=== PATIENT | male | born 1990 | race Caucasian/White ===

== ENCOUNTER 2017-02-02 09:35 | Inpatient (IN) | payer OTHER ==
[~2017-02-02] VITALS: Ht 165.1 cm; Wt 62.5 kg
--- NOTE | ~2017-02-02 | CLPRLASSUM ---
PATIENT: ANAHY PEÑA | | [facility] UNIT #: [id number] | [address] AGE/SEX: 27 M : [birth year] | [address] | [place] [address] ADMIT/REG DATE: 02/02/17 | ROOM: [facility] LOC: ADTC | ADTC | Client Problem List/Assessment Summary Date: 02/08/17 Problems identified by the client: Client stated he has theft, addiction and charges pending, which brought him into treatment. Problems identified by significant others: Same Client's Strengths: Client was unable to identify any strengths. Problem List: Code: T Client continues to use alcohol &/or drugs despite ongoing negative consequences. Code: T Client does not "reach-out to others for help" and instead resumes using alcohol &/or drugs. Code: T Client has learned to deny or stuff feelings; needs to learn to identify and process feelings with safe people to acquire the necessary skills to maintain fci sobriety. Code: T Client needs to identify relapse warning signs and develop a plan to deal with them as they arise. Code Burt: T: to be addressed during course of treatment O: problem noted, expected to resolve itself with abstinence--specific tx plan not required R: problem noted, will be referred upon discharge PRIMARY COUNSELOR: TRAVON Ríos
--- NOTE | ~2017-02-02 | RESCARESUM ---
"PATIENT: ANAHY PEÑA | | [facility] UNIT #: [id number] | [address] AGE/SEX: 27 M : 88 | [address] | [place] [address] ADMIT/REG DATE: 02/02/17 | ROOM: [facility] LOC: ADTC | ADT | Summary of Residential Care Primary Counselor: Yari COOL Date of Admission: 02/02/17 Date of Discharge: 02/28/17 Referral Source: [facility] Primary Care Provider Prior to Admission: Self Admitting Diagnosis: F15.20 Stimulant Use Disorder, Severe; F12.20 Cannabis Use Disorder, Severe; F10.20 Alcohol Use Disorder, Moderate; Tobacco Use Disorder; Mild Intermitten asthma; Chemical induced mood disorder; Major Depressive disorder, moderate, recurrent, ALL PER [facility] Discharge Diagnosis: Same Goals Achieved: Anahy was able to identify negative consequences of his addiction; he completed various packets designed to assist him in gaining insight to the disease concept, including Step 1. He wrote and processed feelings letters and he was able to work on changing his criminal thinking and making positive changes in his life. Continued Obstacles to Sobriety/Relapse Issues: Nursing Home, legal issues, not being able to attend AA/NA meetings, not getting and calling a sponsor, not being able to go to the [facility], and not being able to work a strong program of recovery. Family Issues Addressed: The only issues addressed were when he wrote feelings letters to various family members. Y Individual Therapy Y Group Therapy Y Educational Series on Substance Abuse N Parents/Significant Others Attended Family Program N Acute Medical Problems During the Course of Treatment N Transferred to Hospital During the Course of Treatment Y Accepting of Substance Abuse Problem N Non-accepting of Substance Abuse Problem N Required Psychological or Psychiatric Consultation During the Course of Treatment Completed AA Step # 1 During This Level of Care Significant Incidences During Treatment: None Reason For Discharge: Y Completed Residential TX Goals and Ready For Next Level of Care N Left Tx Against Medical Advice/Treatment Goals Not Complete N Completed Residential Tx Goals But Refusing Continuing Care Recommendations N Discharged Due to Noncompliance/Treatment Goals not Completed PATIENT: ANAHY PEÑA | | [facility] UNIT #: [id number] | [address] AGE/SEX: 27 M : 88 | [address] | [place] [address] ADMIT/REG DATE: 02/02/17 | ROOM: [facility] LOC: ADTC | ADTC | Summary of Residential Care N Discharged Earlier Than Planned Due to: N Continuing Care Plan/Recommendations: N Intensive Partial Care Y Sponsor N Partial Care Y AA Meetings/NA Meetings Y Outpatient N Co-dependency Services N Therapeutic Community N [address] [place] [address] [place] N Mental Health Therapy N Marriage Counseling N Other Specific Continuing Care Plan: It is recommended that Anahy go directly to the [facility], attend aftercare here with Joselo Nguyen, at least 3-5 AA/NA meetings per week, get and call a sponsor on a regular basis, 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 It was later learned that he did in fact, go to the [facility], but had court at 9:00, and was placed back in [facility]. He has a andrade set, so will be working on getting it posted. PRIMARY COUNSELOR: TRAVON Ríos"
--- NOTE | ~2017-02-02 | TXPLANREV ---
"PATIENT: ANAHY PEÑA | | [facility] UNIT #: [id number] | [address] AGE/SEX: 27 M : 88 | [address] | [place] [address] ADMIT/REG DATE: 02/02/17 | [facility] | [facility]TC | Treatment Plan/Staffing Review Date: 02/22/17 Treatment plan was reviewed and determined appropriate as written: Yes Treatment plan was reviewed and the following changes/addition/deletions are necessary: Client is to continue working on treatment plan assignments. He will begin working on relapse prevention. 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 Other pertinent issues discussed during this staffing review include: None at this time. Staff Present: Madonna Campbell PRIMARY COUNSELOR: TRAVON Ríos Client Signature Counselor Signature Date Time "
--- NOTE | ~2017-02-02 | TXPLANREV ---
"PATIENT: ANAHY PEÑA | | [facility] UNIT #: [id number] | [address] AGE/SEX: 27 M : 88 | [address] | [place] [address] ADMIT/REG DATE: 02/02/17 | ROOM: A[facility] LOC: ADTC | ADTC | Treatment Plan/Staffing Review Date: 02/15/17 Treatment plan was reviewed and determined appropriate as written: Yes Treatment plan was reviewed and the following changes/addition/deletions are necessary: Client is to continue working on treatment plan assignments. He is finishing up with feelings letters and will begin working on criminogenics material. Discharge plans were reviewed and determined appropriate as previously documented: No Discharge plans were reviewed and determined to be as follows: Client has been accepted into the [facility], however, they require a deposit and he doesn't know where to get the money to get in. He will be recommended to attend AA/NA meetings, get and call a sponsor on a regular basis and learn how to work a strong program of recovery. Other pertinent issues discussed during this staffing review include: None at this time. Staff Present: Madonna Campbell PRIMARY COUNSELOR: TRAVON Ríos Client Signature Counselor Signature Date Time "
--- NOTE | ~2017-02-02 | INDIVTXPLN ---
"PATIENT: ANAHY PEÑA | | [facility] UNIT #: [id number] | [address] AGE/SEX: 27 M : 88 | [address] | [place] [address] ADMIT/REG DATE: 02/02/17 | [facility] | Individualized Treatment Plan Date: 02/08/17 Problem Statement/Issue Identified: Client has learned to deny or stuff feelings; needs to learn to identify and process feelings in a clean/sober manner. Goal: Client will learn how to identify and express feelings in a healthy, clean/sober manner. Objectives/Activities to achieve goal: 1. Client is to write the following people a feelings letter, each separately, and process them with counselor and in family group, if able: His Mother, father, brother and child. Due Date: Complete: Incomplete: Client signature Date Counselor signature Date Outcome/Measurement of Progress Towards Goal: Counselor's signature Date "
--- NOTE | ~2017-02-02 | INDIVTXPLN ---
"PATIENT: ANAHY PEÑA | | [facility] UNIT #: [id number] | [address] AGE/SEX: 27 M : 88 | [address] | [place] [address] ADMIT/REG DATE: 02/02/17 | [facility] | Individualized Treatment Plan Date: 02/08/17 Problem Statement/Issue Identified: Client continues to use alcohol &/or drugs despite ongoing negative consequences, and he did not reach out to anyone prior to using. Goal: Client will learn how to identify negative consequences of his addiction, attend AA/NA meetings and meet men in recovery. Objectives/Activities to achieve goal: 1. Client is to complete the How to Get Started packet, process it with counselor and selected pages in group. Due Date:02/11/17 Complete: Incomplete: 2. Client is to complete Step 1, process it with counselor and selected pages in group. Due Date:02/14/17 Complete: Incomplete: 3. Client is to attend AA/NA Meetings, ask for and get at least 5 names and numbers of men in recovery and share that list with counselor. Due Date:Ongoing Complete: Incomplete: Client signature Date Counselor signature Date Outcome/Measurement of Progress Towards Goal: Counselor's signature Date "
--- NOTE | ~2017-02-02 | INDIVTXPLN ---
"PATIENT: ANAHY PEÑA | | [facility] UNIT #: [id number] | [address] AGE/SEX: 27 M : 88 | [address] | [place] [address] ADMIT/REG DATE: 02/02/17 | ROOM: A[facility] LOC: ADTC | ADTC | Individualized Treatment Plan Date: 02/24/17 Problem Statement/Issue Identified: Client needs to identify relapse warning signs and develop a plan to deal with them as they arise. Goal: Client will learn how to look at relapse triggers and make a plan of how to change them, and maintain his recovery. Objectives/Activities to achieve goal: 1. Client is to complete the Recovery Maintenance packet and process it with counselor. Due Date:02/28/17 Complete: Incomplete: Client signature Date Counselor signature Date Outcome/Measurement of Progress Towards Goal: Counselor's signature Date "
--- NOTE | ~2017-02-02 | INDIVTXPLN ---
"PATIENT: ANAHY PEÑA | | [facility] UNIT #: [id number] | [address] AGE/SEX: 27 M : 88 | [address] | [place] [address] ADMIT/REG DATE: 02/02/17 | ROOM: A.[facility] LOC: ADTC | ADTC | Individualized Treatment Plan Date: 02/16/17 Problem Statement/Issue Identified: Client will benefit from working on making positive changes in his life, and stop his old thinking and behaviors, to ensure he remains clean/sober. Goal: Client will learn how to change his thinking and make positive changes in his life. Objectives/Activities to achieve goal: 1. Client is to complete the Con Game packet and process it with counselor. Due Date:02/23/17 Complete: Incomplete: 2. Client is to complete the My change Plan packet and process it with counselor. Due Date:02/23/17 Complete: Incomplete: 3. Client is to complete the Life Management packet and process it with counselor. Due Date:02/23/17 Complete: Incomplete: Client signature Date Counselor signature Date Outcome/Measurement of Progress Towards Goal: Counselor's signature Date "
--- NOTE | 2017-02-02 11:30 | NUR ---
AM GRP 1.5 HRS, Ratio 1:10/ Clt fell asleep in his chair on a few occassions, and when awoke, stated his seroquil makes him very tired, and that he takes 50 mg in the morning, so heard we will work on getting that d/cassi.
--- NOTE | 2017-02-02 14:06 | NUR ---
ADMISSION NOTE Rights/Responsibilities: Copy given and explained to client. Signed and accepted by client. Client oriented to physical lay out of the ADTC unit, given Big Book and admission packet. A Ike was assigned. Brian Castillo Client is a 27yr old single male. Reffered by probation. Brought to tx by s/o. Lives in [place], [place]. DOC, meth, last used 08/18/16, 2 grams daily. No allergies, Meds: nurse has them. Was searched no contraband. Initial paperwork given and guidelines gone over. Doctor has been notified.
--- NOTE | 2017-02-02 15:00 | NUR ---
INITIAL SESSION 1 HR: Clt was oriented to tx plans, schedules and what to expect from this counselor and tx. He stated he came from prison, hopes to not have to go back, and is glad he's finally here. He has several charges pending, stated his brother, who is handicapped, is now in the hospital in [place] for some type of lung infection, and he isn't sure how he's doing. His mom is there w/ him, so he will more than likely not have visits the first week. Clt is to begin working on intitial paperwork.
--- NOTE | 2017-02-02 18:36 | NUR ---
Education: 1 hour lecture on self esteem given by counselor
--- NOTE | 2017-02-02 22:58 | NUR ---
Client did beads for rec and attended N.A.Meeting. SE: Being here in tx
--- NOTE | 2017-02-03 04:03 | NUR ---
Bed note: client was in bed with eyes closed and no distress at all bed checks.
--- NOTE | 2017-02-03 10:19 | HP ---
ADMIT: 02/02/2017 RM/LOC: [facility] MR#: [id number] [address] [address] ANAHY PEÑA [address] [place] [address] History and Physical SEX: M AGE: 27 : 1990 DATE OF SERVICE: This is for his admission to the residential care program at the [facility]. CHIEF COMPLAINT: Drug problem. CLINICAL HISTORY: The patient is a 27-year-old white male, admitted to the residential care program at the [facility] for treatment of his methamphetamine/stimulant use disorder as well as his cannabis use disorder. The patient comes to treatment after having spent the last 5 months [facility]. He has been incarcerated in the [facility] from 08/18/2016 until today. He was released from [facility] on a treatment andrade and then asked to return to [facility] upon completion of treatment pending further charges and court dates. The patient is currently in [facility] for distribution of methamphetamine, thefts x2, burglary and shoplifting, multiple charges. The patient notes that he has a significant legal history and that he was confined to correction from 2009 until 2012. Once again, that was for burglary and other theft charges. Extensive past legal history related to his drug and alcohol use. He readily admits that he is an addict and notes that his drug of choice is methamphetamine. He first started using meth at around age 10 and has used essentially off and on since that time except for when he has been confined to [facility]. The patient was involved in an extended outpatient treatment program from age [age] while he was in foster care living in [place] after he had been removed from his parent's care at the age of 14. The patient, as noted, notes that meth is his drug of choice. When using, he typically uses 2-3 g per day. His second drug of choice is marijuana. He started using pot at around age 9. He notes he prefers meth over pot, but if he cannot get meth, he will smoke pot up to as much as 0.25 ounce per day. Third drug of choice is alcohol, although he notes he prefers pot or meth over alcohol. He used to drink heavily when he was in his late teens and early 20s primarily as a binge drinker, but if there are drugs available, he will use drugs and not drink. He does admit to some use of cocaine in the past when he was younger, but denies any other illicit drug use. The patient notes after his extended stay in correction from 2009 through 2012, he relapsed immediately. The first day he got out of correction, he started using meth again. He notes he had gone to his father's home. His father is a meth addict. He lived with his father, relapsed on meth immediately, and has continued to use for the last 4 years since getting out of correction. He comes to treatment as a portion of a plea agreement that they are trying to work out on his current charges noting that he realizes he needs help if he is going to get clean and sober. He is hopeful to complete treatment, and then when his legal charges are resolved, try to get into a [facility] house. PAST MEDICAL HISTORY: Previous hospitalizations: None. Previous operations: None. CURRENT MEDICATIONS: He is on Seroquel 50 mg in the a.m. and 200 mg at bedtime. He was started on this approximately 3 months ago in [facility]. He notes that this has helped significantly for his anxiety, mind racing, and ADMIT: 02/02/2017 RM/LOC: [facility] MR#: [id number] [address] [address] ANAHY PEÑA [address] [place] [address] History and Physical SEX: M AGE: 27 : 1990 sleeplessness. His only other medication is an albuterol metered dose inhaler that he uses on a p.r.n. basis for his mild asthma. ALLERGIES: NO KNOWN DRUG ALLERGIES. MEDICAL ILLNESSES: The patient does have a history of mild intermittent asthma as well as exercise-induced asthma. He does note that he is a smoker. Other than for his respiratory problems, he denies any other chronic health issues. He denies any history of IV drug use. He does note that when he was in correction, he was tested for both HIV and hep C and was negative. REVIEW OF SYSTEMS: A 12-point review of systems is otherwise negative with no significant cardiac, pulmonary, GI, , musculoskeletal, or neurologic problems. SOCIAL HISTORY: The patient is single. He notes he has one child, age 11, whom he has not seen for years. He does not even know where the child is at. The child is with a former girlfriend. He notes he dropped out of high school in the 10th grade. He got his GED while in correction. He has been unemployed for the last several years. Notes he has never been able to hold a job. As noted, extensive legal history and comes to treatment after spending the past 5 months in [facility]. FAMILY HISTORY: He notes his parents when he was young, raised primarily by his mother. He notes his father is an alcoholic and an addict. He has 1 older half brother who has severe cerebral palsy. He is unaware of any other significant family health issues. PHYSICAL EXAMINATION: VITAL SIGNS: Temp is 97.5, pulse 58, respirations 20, blood pressure 139/81, height 5 feet 5 inches, weight is 136 pounds. GENERAL: The patient is a 27-year-old white male, very small framed, who is in no acute distress, oriented x3. HEENT: Unremarkable. Dentition is in poor repair. His nose and throat are noninflamed. NECK: Supple. Thyroid not enlarged. No cervical adenopathy. LUNGS: Clear. No wheezes noted. HEART: Has a regular rhythm without murmur. ABDOMEN: Unremarkable. No masses or organomegaly. Bowel sounds normoactive. No CVA or suprapubic tenderness. EXTREMITIES: Noted to have no edema. No clubbing or cyanosis. No calf tenderness. The patient does note some stiffness and slight loss of motion in his right elbow from previous dislocation of his right elbow in 2009. INTEGUMENT: No rashes. NEUROLOGIC: No focal deficit. Balance and gait normal. Cranial nerves II through XII grossly intact. MENTAL STATUS EXAMINATION: He is pleasant, cooperative. Affect is appropriate. No bizarre ideation. No delusions or hallucinations. No ADMIT: 02/02/2017 RM/LOC: [facility] MR#: [id number] [address] [address] ANAHY PEÑA [address] [place] [address] History and Physical SEX: M AGE: 27 : 1990 bizarre ideation. Does admit to past depression but denies suicidal thoughts. He is oriented x3. Insight is limited. Judgment is guarded. ASSESSMENT AT THE TIME OF ADMISSION: 1. Stimulant/methamphetamine use disorder, severe. 2. Cannabis use disorder, severe. 3. Alcohol use disorder, moderate. 4. Tobacco use disorder. 5. Mild intermittent asthma. 6. Chemical-induced mood disorder. 7. Major depressive disorder, moderate, recurrent. PLAN: Plan is to admit the patient to the residential care program with a tentative discharge date of 03/02/2017. Upon completion of treatment, the patient will need to return to [facility] and clear up all remaining legal issues. He then hopes to go to a [facility] house, will need an extended stay at a sober living community to help maintain long-term sobriety. Will also need ongoing mental health counseling for monitoring of his psychotropic medications. Pepito Márquez MD/ wendy JOB #: [id number] CC: Pepito Márquez, Attending Physician FAMILY PHYSICIAN, Family Physician
--- NOTE | 2017-02-03 15:32 | NUR ---
Tech Note: Client participated in Spiritual Enrichment in the morning and went for an outdoor walk after lunch. Client stated that he is working on Step One.
--- NOTE | 2017-02-03 16:18 | NUR ---
Education 1 Hour: Client heard a presentation on cross addiction.
--- NOTE | 2017-02-03 17:27 | NUR ---
Step ed. 1 hr/ focus was on step one and powerlessness. Each person answered a set of questions on paper and then we discussed out loud. This client participated.
--- NOTE | 2017-02-03 23:16 | NUR ---
TECH NOTE: Client did newcommer bookmarks for REC, participated in guided meditation, and attended AA meeting. SE: phone call
--- NOTE | 2017-02-04 01:22 | NUR ---
1 HR EDUCATION: Client watched a video "Say Yes to Life" by Father Girma Conway
--- NOTE | 2017-02-04 04:46 | NUR ---
Bed Note: CLt lay motionless in bed with eyes closed showing no distress at all bed checks.
--- NOTE | 2017-02-04 11:04 | NUR ---
FAMILY CONTACT: Clt's mom was called. She stated she is so happy and excited he's here in tx, that he's been needing it for a long time. She shared about his ill brother, and that she wants to be here for clt but also has to be there for her other son. She stated she will keep up informed of when she's coming home, and hopes to participate in family edu.
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
--- NOTE | 2017-02-04 11:30 | NUR ---
GROUP 1.5 HRS. 1:10 Clients participated in orienting new peers to purpose and rules of group. This client stated he missed orientation yesterday due to drowsiness caused by his medication. He reports he is feeling better today as he refused morning dose. Discussion included consequences of addiction including the effects on family and loved ones as well as feelings and acceptance.
--- NOTE | 2017-02-04 14:52 | NUR ---
PEER REVIEWS 1.5 HRS: Clt participated in peer review process and took a risk to give open and honest feedback.
--- NOTE | 2017-02-04 16:35 | NUR ---
Tech Note: Clt watched "Relapse" for afternoon video. Clt is working on Step 1.
--- NOTE | 2017-02-04 22:57 | NUR ---
Tech note: Client watched tv and movies. Client went to an offsite AA meeting.
--- NOTE | 2017-02-05 05:27 | NUR ---
Bed note : Client was in bed motionless with eyes close at all bed checks.
--- NOTE | 2017-02-05 15:47 | NUR ---
Tech Note: Client attended A.A.Meeting at [facility] and [place] and then helped with the clubhouse cleaning, ate lunch, and listened to a speaker. Client is working on Step1. Client also had a visit.
--- NOTE | 2017-02-05 20:53 | NUR ---
tech note: Client played a game for recreation & attended offsite AA meeting.Client watched tv. SE: Free time.
--- NOTE | 2017-02-06 05:27 | NUR ---
Bed note: Client was in bed motionless with eyes closed at all bed checks.
--- NOTE | 2017-02-06 16:24 | NUR ---
TECH NOTE: Client participated in Chapter 5 of Big Book study, attended congregational and watched tv/movies
--- NOTE | 2017-02-06 23:53 | NUR ---
tech note: client attended AA Panel & participated in Community Clean. Client had permission from counselor & made call to brother who is having health problems. SE: andrew.
--- NOTE | 2017-02-07 04:42 | NUR ---
Bed Note: Clt lay motionless in bed with eyes closed showing no distress at all bed checks.
--- NOTE | 2017-02-07 11:16 | NUR ---
Tech notes: Client is working on Step 1
--- NOTE | 2017-02-07 11:16 | NUR ---
Tech notes: Client is working on Step 1
--- NOTE | 2017-02-07 11:30 | NUR ---
GROUP 1.5 HR/ 9:1 Clients all heard peers share packets/shame booklet and this client did share page 2 & 3 of GS, wants to learn more about self and said feelings are overwhelming. Knows he needs help with relapse prevention.
--- NOTE | 2017-02-07 15:44 | NUR ---
Education note: Client attended speaker for education, Karma on Tobacco
--- NOTE | 2017-02-07 16:00 | NUR ---
Recovery 101 1 hr/ Clients all participated in reading, highlighting and discussing the Big Book on areas about honest, acceptance, living in problem vs living in solution, resentments, 1/2 measures, and the 12 promises.
--- NOTE | 2017-02-07 18:20 | NUR ---
Education: 1 hour lecture given by counselor on "forgiveness"
--- NOTE | 2017-02-07 22:40 | NUR ---
Tech note : Client went on a walk for rec and attended an onsite NA meeting. SE; All day
--- NOTE | 2017-02-08 04:19 | NUR ---
Bed note: Client was in bed with eyes closed and no distress at all bed checks.
--- NOTE | 2017-02-08 11:30 | NUR ---
GROUP 1.5 HRS. 1:9 Clients participated in orienting new peer to purpose and rules. Discussion included discharge plans and the importance of aftercare plan. Peer processed HOW TO GET STARTED IN TREATMENT assignment.
--- NOTE | 2017-02-08 13:28 | NUR ---
Tech Note: Client participated in light stretching for morning exercise and went for an outdoor walk in the afternoon. Client stated that he is working on Step One.
--- NOTE | 2017-02-08 13:38 | NUR ---
Education One Hour: Client heard a presentation on Sexually Transmitted Disease.
--- NOTE | 2017-02-08 16:06 | NUR ---
Relapse Prevention Education, 1.0 hours, Client attended and actively participated in relapse prevention education which focused on a Relapse Prevention Quiz and discussion over the answers.
--- NOTE | 2017-02-08 20:31 | NUR ---
education note: 1 hour lecture by counselor on" what montero are you willing to pay"
--- NOTE | 2017-02-08 23:01 | NUR ---
Tech note: Client attended the Alumni meeting, participated in guided meditation and attended an onsite AA meeting. SE; Peer deon
--- NOTE | 2017-02-09 04:59 | NUR ---
Bed note: Client was in bed with eyes closed and motionless at all bed checks.
--- NOTE | 2017-02-09 10:42 | NUR ---
Tech notes: Client is working on Step 1 and mtg with anthony
--- NOTE | 2017-02-09 12:38 | NUR ---
Education note: Client had education by [facility]
--- NOTE | 2017-02-09 13:00 | NUR ---
AM GROUP 11:10/10.5 HR: Client and peers assisted in the ORIENTATION OF A NEW MALE PEER TO GROUP GUIDELINES, GOALS AND OBJECTIVES. Clients heard three peers process issues and assignments. Much of the focus became the child victims of this disease as they are negatively impacted in many ways by their parent's drug use. As peers processed, many related and shared from personal experience. This client, seemingly though well-intended, talked and offered a lot of advice to peers. He tends to ramble and digress.
--- NOTE | 2017-02-09 16:00 | NUR ---
IS 1 HR: Leodan shared that his grandma is in the assisted behind our ut center and he wishes there was a way to see her. We discussed visiting hours, but he stated she's in a wheel chair. His mother had called and left tech a message to ask leodan to call about his brother's update on his surgery. Leodan ws allowed to call her, and was informed he has bleeding in his shoulder, but they don't want to open it back up at this time, due to all the infection in his body. Leodan's mother also informed him she had spoken to leodan's grandmother, and she had been spending most of her time with her, until she had to take leodan's bro to [place]. Leodan shed tears as he spoke to her, and when he hung up, he stated his grandma feels so lost and alone, since Mom can't go visit. He is to begin writing feelings letters and write to all of them.
--- NOTE | 2017-02-09 17:30 | NUR ---
SPIRITUAL EDUCATION 1 HR. Todays topics were orienting newcomers, and taking a look at Bruce Mcallister's 5 SECRETS TO SUCCESS which include a look at the miracles of the human body as blessings.
--- NOTE | 2017-02-09 20:58 | NUR ---
education: 1 hour video on unresolved anger and group discussion with counselor
--- NOTE | 2017-02-09 22:16 | NUR ---
Tech note: Client worked on beaded project and attended an onsite NA meeting. SE; Meeting with counselor
--- NOTE | 2017-02-10 04:06 | NUR ---
Bed note: Client was in bed with eyes closed and no distress at all bed checks.
--- NOTE | 2017-02-10 07:57 | NUR ---
IS 1 HR: Processed leodan's BPS. He shared about being in foster care when he was in his teens due to getting into trouble while living at his Mom's, so when his dad asked if he could take him, Mom let him go, hoping his moving to [place] would keep him out of trouble. Instead, leodan used with his dad and took a possession of controlled substance chg for his dad, which landed him in foster care. Arniet advised he went to vt while in [place] at [facility], but was not able to stay clean/sober. He went to nursing home for 3 yrs of a 4-6 yr sentence at age 17. Leodan also shared about his brother being handicapped and how close he felt to him, even tho his brother couldn't talk to him. He is to finish his How to Get Started pkt and will process next week.
--- NOTE | 2017-02-10 10:36 | NUR ---
Tech Note: Client participated in Spiritual Enrichment. Client stated that he is working on, "How to Get Started in Treatment." Client was late to community meeting.
--- NOTE | 2017-02-10 11:30 | NUR ---
AM GRP 1.5 HRS, Ratio 1:11/ Clt participated in grp discussion and could relate to how his addiction hurt his kids and how important it is to stay clean and work recovery.
--- NOTE | 2017-02-10 13:40 | NUR ---
Education 1 Hour: Client heard a presentation from a member of the recovery community who shared his experience, strength and hope.
--- NOTE | 2017-02-10 16:23 | NUR ---
step education 1 hr/ Focus was on step 2, handed out some questions they completed on paper and then opened it up for discussion. This client participated.
--- NOTE | 2017-02-10 23:58 | NUR ---
Tech Note: Client attended Guided Meditation and A.A.Meeting. SE:Speaker
--- NOTE | 2017-02-11 04:27 | NUR ---
Eduction: 1 Hour. Client attended "Unresolved Anger" video & discussion presented by staff.
--- NOTE | 2017-02-11 11:47 | NUR ---
Group 1.5 Hr Ratio 1:9/Topics today were two getting started packets, forgiveness and dealing with bad childhoods. Client shared how he could relate to what peers were sharing about having a tough childhood and bein able to let it go.
--- NOTE | 2017-02-11 13:00 | NUR ---
PEER REVIEWS 1.5 HRS: Clt participated in peer review process and was able to give open and honest feedback to those receiving a review.
--- NOTE | 2017-02-11 16:29 | NUR ---
Tech Note: Client participated in group walk for exercise and watched "Recovery Issues Part 3" for afternoon video. Client is working on Getting Started.
--- NOTE | 2017-02-11 22:51 | NUR ---
TECH NOTE: Client participated in reading guidelines and watched tv/movies. Attended off site optional AA meeting. SE: trina
--- NOTE | 2017-02-12 04:12 | NUR ---
Bed Note: Clt lay motionless in bed with eyes closed showing no distress at all bed checks.
--- NOTE | 2017-02-12 16:21 | NUR ---
Tech Note: Client attended NA Panel and is working on Getting Started and Feelings Letters.
--- NOTE | 2017-02-12 16:43 | NUR ---
Tech Note: Client had interview with KAMI of [facility].
--- NOTE | 2017-02-12 20:33 | NUR ---
Tech note: Clt played a game for recreation and attended offsite AA mtg. Watched tv, used phone and played cards. SE was jeana
--- NOTE | 2017-02-13 04:40 | NUR ---
Bed Note: Clt lay motionless in bed with eyes closed showing no distress at all bed checks.
--- NOTE | 2017-02-13 16:01 | NUR ---
Tech Note: Client participated in Big Book Study. Client stated that he is working on, "How to Get Started in Treatment." Client attende episcopalian in the morning and received visitors.
--- NOTE | 2017-02-13 23:02 | NUR ---
Tech Note: Clt attended AA panel, [employer] mtg, used phone and watched tv. SE was visit
--- NOTE | 2017-02-14 04:41 | NUR ---
Bed Note: Clt lay motionless in bed with eyes closed showing no distress at all bed checks.
--- NOTE | 2017-02-14 10:20 | NUR ---
Tech notes: Client is working on Fl's
--- NOTE | 2017-02-14 13:32 | NUR ---
Education: Client attended education by Gisela on Infection prevention.
--- NOTE | 2017-02-14 16:00 | NUR ---
Recovery 101 1 hr/ Clients all were asked to share what they worked on in treatment or past treatments that really helped them and/or their experience with working an AA/NA program of recovery-what went well. This client was attentive and shared it was hard to share feelings in past treatment, now is here for self, got a sonsor this time.
--- NOTE | 2017-02-14 18:13 | NUR ---
Education: 1 Hour. Client attended "Adult Children of Alcoholics" lecture presented by staff.
--- NOTE | 2017-02-14 23:43 | NUR ---
tech note: Client played a game for recreation & attended onsite NA meeting. SE: NA meeting.
--- NOTE | 2017-02-15 04:33 | NUR ---
BED NOTE: Client was in bed, motionless with eyes closed all three bed checks.
--- NOTE | 2017-02-15 11:30 | NUR ---
GROUP 1.5 HRS. 1:9 Client participated in orienting new peer to purpose and rules of group. Group discussion included anger and frustration at peer's disrespect and immaturity. This peer was in the other group so clients were redirected at what they can do to be a part of the solution, not part of the problem.
--- NOTE | 2017-02-15 16:00 | NUR ---
Relapse Prevention, 1.0 hours, Client attended and actively participated in relapse prevention education which focused on internal and external triggers.
--- NOTE | 2017-02-15 16:42 | NUR ---
Tech Note: Client participated in Nutritional Services presentation and is working on Feelings Letters.
--- NOTE | 2017-02-15 22:43 | NUR ---
Education: 1 hour lecture given by counselor on co-dependency
--- NOTE | 2017-02-15 22:55 | NUR ---
Tech note: clients played catchphrase for rec, participated in guided meditation and attended AA meeting SE: AA mtg and 6 month coin
--- NOTE | 2017-02-16 04:38 | NUR ---
bed note: client was in bed with eyes closed and motionless at all bed checks.
--- NOTE | 2017-02-16 09:56 | NUR ---
Tech notes: Client is working on Fl's and mtg with anthony
--- NOTE | 2017-02-16 11:30 | NUR ---
GROUP 1.5 HRS. 1:12 Clients participated in orienting new peer to purpose and rules of group. Discussion included healthy coping skills to deal with stress and feelings. Peer processed from his step 1 assignment identifying how he betrayed his values in his addiction. This client reports cold like symptoms and was not actively involved in group.
--- NOTE | 2017-02-16 12:43 | NUR ---
Group 1.5 hr/10:1 Clients heard peers share packets, this client was attentive.
--- NOTE | 2017-02-16 13:16 | NUR ---
Education note: Client attended educational speaker Abraham Valderrama
--- NOTE | 2017-02-16 16:00 | NUR ---
IS 1 HR: Ledoan shared from his How to Get Started pkt, as he had not completed it last week. He did a good job of identifying events in his life in it and the effect drugs played in it. We discussed the importance of him finding money to get into the [employer], as the [employer] will not be enough structure for him. Leodan shared feelings letters to his brother and mom, however, he needs to add to his Mom's.
--- NOTE | 2017-02-16 17:31 | NUR ---
SPIRITUAL EDUCATION 1 HR. Today we used music to invoke discussion, symbolize how it can be either positive spirituality or negative spirituality, and discussed the feelings. We used one song that depicted addiction, one that talked about recovery, and since we are close to Mother's Day, one that depicted addiction in parents and forgiveness.
--- NOTE | 2017-02-16 18:20 | NUR ---
Education: 1 Hour. Client attended "Boudaries" lecture given by staff.
--- NOTE | 2017-02-16 22:59 | NUR ---
Tech Note: Client played a game for rec, and attended The on unit N.A.Meeting. SE: Spirituality
--- NOTE | 2017-02-17 04:30 | NUR ---
Bed Note: Client was in bed with eyes closed and motionless at all bed checks.
--- NOTE | 2017-02-17 07:59 | NUR ---
IS 1 HR: Leodan stated he hadn't gotten a chance to get started on anything else, but he will attend family education today. We discussed him doing the Con Game and Change Plan pkts, and he identified several things he did that were conning and manipulative. Most involved money, lying and stealing. Anriet advised his Mom finally got smart and stopped giving him money to spent on drugs, when he'd tell her it was for something else. We did send leodan's PO a message inquiring whether they have any funding to help him get into the [place].
--- NOTE | 2017-02-17 12:45 | NUR ---
Group 1.5 Hr Ratio 1:9/Topics today were a collage, two step ones, a getting startred and feelings letters. Client shared how he could relate to what clients were sharing from assignments and issues. He also shared his GS packet, his step one and two feeling letters to his dad and brother. getting started and step one were good but his feelings letters had no feelings but there weree some good examples.
--- NOTE | 2017-02-17 16:42 | NUR ---
FAMILY EDUCATION 3 HRS. Client attended alone and took part in the discussion on the disease concept. All related to progression and consequences of addiction.
--- NOTE | 2017-02-17 18:18 | NUR ---
Education 1HR: Clt watched video called "Predator part 1" by Saleem Parsons with staff present.
--- NOTE | 2017-02-17 23:15 | NUR ---
Tech Note: Client took a walk for rec and attended the A.A.Meeting. SE: All Day
--- NOTE | 2017-02-17 23:24 | NUR ---
1:00 pm. Education Note: Client watched video "Inside the Addictive Personality"
--- NOTE | 2017-02-18 04:09 | NUR ---
Bed Note: Client was in bed and motionless at all bed checks.
--- NOTE | 2017-02-18 11:56 | NUR ---
Group 1.5 hr Ratio 1:10/Topics today were Orientation a new client to group rules and goals, a con game packet and a letter to a family member. Client shared how he could relate to what peers were sharing and how it peer review is a good thing.
--- NOTE | 2017-02-18 14:25 | NUR ---
PEER REVIEWS 1.5 HRS: Clt participated in peer review process and was able to give open and honest feedback to those receiving a review.
--- NOTE | 2017-02-18 15:44 | NUR ---
Tech Note: Client participated in group walk and watched "Marijuana" by Saleem Parsons. Assignment being worked on is Con Game, Feelings Letters and Life Change & Management.
--- NOTE | 2017-02-18 23:26 | NUR ---
Tech note: Client played games and watched movies. Client walked to an offsite AA meeting. His mother was at the meeting, after it was over she was outside sharing with him the health of his brother. She pulled out her phone and started showing pictures of him. I respectfully informed her of the guidlines Eldon agreed to entering treatment. She put her phone away and there was no further problems.
--- NOTE | 2017-02-19 04:03 | NUR ---
Bed note: Client was in bed with eyes closed and no distress at all bed checks
--- NOTE | 2017-02-19 16:59 | NUR ---
Tech Note: Client went to A.A.Meeting at [address]. Went on a walk Client is working on FL's, Con Game, Change Plan, Life Management
--- NOTE | 2017-02-19 22:20 | NUR ---
Tech note: Client's were just starting to grill around 6pm so we did not have rec this evening. Client walked to an offsite AA meeting, played games and watched movies. SE; Family
--- NOTE | 2017-02-20 04:47 | NUR ---
tech note: client was motionless in no distress at all bed checks.
--- NOTE | 2017-02-20 17:46 | NUR ---
Tech Note: Client participated in Big Book study. Client attended voodoo. Client stated that he is working on, "Life Management," "Con Game" and "Change Plan." Client received visits and went for an optional outdoor walk.
--- NOTE | 2017-02-20 23:45 | NUR ---
tech note: Client participated in community clean & attended [employer] meeting. Client watched tv. SE: seeing his mom.
--- NOTE | 2017-02-21 04:26 | NUR ---
tech note: client was motionless in no distress at all bed checks.
--- NOTE | 2017-02-21 11:30 | NUR ---
Experiential Group 1.5 hr/ Clients all participated in looking at family dynamics and feelings through sculpturing and participated with feedback, relating and/or role-playing.
--- NOTE | 2017-02-21 17:53 | NUR ---
Tech Note: Client went for an outdoor walk in the afternoon. Client stated that he is working on, "Con Game," writing feelings letters and, "My Change Plan."
--- NOTE | 2017-02-21 20:50 | NUR ---
Education 1 HR: Clt listened to lecture given by counselor on communication.
--- NOTE | 2017-02-21 21:00 | NUR ---
FAMILY EDUCATION 3 HRS., GROUP 2 HRS. 2:9 Client attended alone and took part in the discussion on the family roles, codependency and detachment. Client related to scapegoat, lost child and mascot roles. Client is very verbal and shares lots and lots of details about himself and his family. He offered to share feelings letter in group. He processed the one to his mom and again added many more details in addition to what he had written. He then wanted to read his other letters as well but was advised others also need group time.
--- NOTE | 2017-02-21 23:16 | NUR ---
Client attended Family SE: Family
--- NOTE | 2017-02-22 04:59 | NUR ---
Bed Note: Client was in bed and motionless at all bed checks
--- NOTE | 2017-02-22 11:43 | NUR ---
GROUP 1.5 HRS. 1:11 Client participated in orienting new peer to purpose and rules of group. Group discussion included the progression of the addiction and the effects on family and lives including suicide attempts. Peer processed goodbye letter to addiction and discussed the need to end the relationship. Client was confronted by peer to stand up as he appeared sleepy.
--- NOTE | 2017-02-22 15:23 | NUR ---
Tech Note: Client joined group for afternoon walk, listened to speaker from [facility] and is working on Feelings Letters, Con Game, Life Change and Management.
--- NOTE | 2017-02-22 16:09 | NUR ---
Tech Note: Client attended Relapse Prevention education with Yari.
--- NOTE | 2017-02-22 19:56 | NUR ---
Education: 1 hour lecture on STD/AID/HIV giernesto by [facility].
--- NOTE | 2017-02-22 22:40 | NUR ---
Tech note : Client worked on [employer] crafts and get well cards. Client participated in guided meditation and went to an onsite AA meeting.
--- NOTE | 2017-02-23 04:17 | NUR ---
Bed note: Client was in bed with eyes closed and no distress at all bed checks
--- NOTE | 2017-02-23 04:17 | NUR ---
Bed note: Client was in bed with eyes closed and no distress at all bed checks
--- NOTE | 2017-02-23 08:30 | NUR ---
IS 1 HR: Clt shared feelings letters and is done w/ them at this point. He is to now work on the criminogenic pkts, and was given recovery maintenance, but will need to finish them in aftercare. He is slowly getting things done, and is very excited that his peers rounded up enough money to pay a deposit to get into the [employer]. He will d/c on 02/28 around 7:00 am when OD gets off work. He then has court at 9:00.
--- NOTE | 2017-02-23 11:17 | NUR ---
Tech Note: Client is working on Feelings Letters, Con Game, Change Plan and Life Change and Management.
--- NOTE | 2017-02-23 12:21 | NUR ---
AM GROUP 13:1/1.5 HR: Client and peers heard multiple clients process assignments and issues. Most did offer feedback, asked clarifying questions and shared from their own experiences. This client was mostly quiet, and complained of the light hurting his eyes. Staff did turn down one bank of lights which seemed to help and he was more attentive but took no personal risks.
--- NOTE | 2017-02-23 13:20 | NUR ---
Tech Note: Client walked in the hallways for afternoon exercise.
--- NOTE | 2017-02-23 13:24 | NUR ---
Education One Hour: Client heard from members of the recovery community, who shared their experience, strength and hope.
--- NOTE | 2017-02-23 17:24 | NUR ---
SPIRITUAL EDUCATION 1 HR. Topics today were orienting newcomers and then broke into groups and did presentations on their sections from TOWARDS SPIRITUALITY.
--- NOTE | 2017-02-23 18:48 | NUR ---
Education: 1 hour lecture given by counselor on "Disease concept".
--- NOTE | 2017-02-23 22:36 | NUR ---
Tech note: Client played catch phrase for rec and attended an onsite NA meeting. SE: talking with peers
--- NOTE | 2017-02-24 05:02 | NUR ---
Bed note: Client was in bed with eyes closed and no distress at all bed checks.
--- NOTE | 2017-02-24 11:28 | NUR ---
Tech Note; Client participated in light stretching for morning exercise. Client stated that he is working on, "Con Game" and "Life Management."
--- NOTE | 2017-02-24 12:43 | NUR ---
Group 1.5 Hr Ratio 1:11/Topics today were feelings letters, a good bye letter to addiction and a couple getting started packets. Client shared how he could relate to what peers were sharing.
--- NOTE | 2017-02-24 15:58 | NUR ---
Step Education 1 hr/Focus was on step 4 making a searching and fearless moral inventory of ourselves. Handed out some questions each person answered on paper and then we discussed. This person participated.
--- NOTE | 2017-02-24 16:21 | NUR ---
Education 1 Hour: Client heard from two members of the recovery community, who shared their experience strength and hope.
--- NOTE | 2017-02-24 20:26 | NUR ---
Education: 1 Hour. Client attended Orlin Ramos "Unhealthy Families" video.
--- NOTE | 2017-02-24 23:04 | NUR ---
Client went on a walk for rec, participated in guided meditation, and attended the on unit A.A.Meeting. SE: found $5 on our walk for rec and gets to leave 2 days early to go to [facility]
--- NOTE | 2017-02-25 05:39 | NUR ---
tech note: client was motionless in no distress at all bed checks.
--- NOTE | 2017-02-25 11:30 | NUR ---
Group 1.5 hr/ 12:1 Clients heard peers share GS and Step 1 packets, this client was attentive and gave feedback.
--- NOTE | 2017-02-25 14:52 | NUR ---
Tech Note: Client joined our group walk for exercise. Watched video titled "Sound of Silence" and is working on Feelings Letters, Con Game, Relapse Prevention and Life Management.
--- NOTE | 2017-02-25 15:46 | NUR ---
PEER REVIEWS 1.25 HRS: Clt participated in peer reviews and took a risk to give open and honest feedback to those receiving a review. Client also had a review done on himself where some of what he heard is had kern built up, focuses on others more than himself, is caring but doesn't care for himself, works on too much at once, is craving a relationship, has a lot of shame, doesn't want to confront his past, and is co-dependent.
--- NOTE | 2017-02-25 20:33 | NUR ---
TECH NOTE: Client participated in reading of guidelines, watched TV/movies and attended optional off site AA meeting SE: peer review
--- NOTE | 2017-02-26 04:32 | NUR ---
BED NOTE: Client was in bed, motionless with eyes closed all bed checks.
--- NOTE | 2017-02-26 13:49 | NUR ---
FINAL SESSION 1 HR: Clt shared that he is struggling with wanting to buy his mom's house, because she doesn't want it, and he thinks he can swing paying for the house and his rent at [place]. Clt heard to stay in today, and work on one thing at a time. His mom will not lose the house immediately, and his goal is his recovery. We did his continued care plan, and he was given a coin and completed thru tx. Clt did the survey.
--- NOTE | 2017-02-26 16:25 | NUR ---
Tech Note: Client is working on Feelings Letters, Life Management, Con Game and Relapse Prevention.
--- NOTE | 2017-02-26 20:30 | NUR ---
Tech note: Clt played a game for recreation and attended offsite AA mtg. Clt played cards, used phone and watched tv. SE was 30 day coin and completion
--- NOTE | 2017-02-27 04:26 | NUR ---
BED NOTE: Client was in bed motionless with eyes closed all three bed checks.
--- NOTE | 2017-02-27 16:00 | NUR ---
Tech Note: Client participated in Big Book study. Client stated that he is working on, "Con Game," "Relapse Prevention," "Life Maintenance" and writing feelings letters. Client attended buddhist.
--- NOTE | 2017-02-27 23:09 | NUR ---
Tech Note: Client attended the A.A.Panel with Lambert Patton Client also attended the [employer] TECHNICIAN Meeting. SE: Packing bags to leave in the morning Client was 5 minutes late to the client meeting due to packing his bags.
--- NOTE | 2017-02-28 04:38 | NUR ---
Bed Note: Client was laying in bed and motionless at all bed checks.
--- NOTE | 2017-02-28 07:05 | NUR ---
DISCHARGE NOTE Client left tx with a ride to the [facility], all personal belongings were sent with. Discharge instructions gone over and copy given.
--- NOTE | 2017-03-16 16:23 | NUR ---
CASE MANAGEMENT/REFERRAL: [facility]t's atty called to inquire about clt getting into the [facility]. He asked if we can contact them w/ the appropriate info needed, so a fax was sent to them including his BPS, H & P, P/N list, Summary of Care. Clt's atty was informed he will need to do the follow up with them.
--- NOTE | 2017-03-29 14:17 | DS ---
ADMIT: 02/02/2017 RM/LOC: Harish [facility] MR#: [id number] [address] [id number] ANAHY PE[address]A [address] [place] [address] General Discharge Summary SEX: M AGE: 27 : 1990 ADMISSION DATE: 02/02/2017 DISCHARGE DATE: 02/28/2017 ADMITTING DIAGNOSIS: As per history and physical. FINAL DIAGNOSES: 1. Stimulant/methamphetamine use disorder, severe. 2. Cannabis use disorder, severe. 3. Alcohol use disorder, moderate. 4. Tobacco use disorder. 5. Mild intermittent asthma. 6. Chemical-induced mood disorder. 7. Major depressive disorder, moderate, recurrent. COMPLICATIONS: None. OPERATIONS: None. CLINICAL HISTORY: The patient is a 27-year-old white male, admitted to the residential care program at the [facility] for treatment of his methamphetamine/stimulant use disorder, as well as his cannabis use disorder. The patient comes to treatment after having spent the last 5 months in halfway. For details of his pattern of usage and problems associated with his ongoing substance abuse and chemical dependency, please see the clinical history portion of the dictated history and physical. Please also see dictated history and physical for pertinent findings on physical exam. LABORATORY AND X-RAY SUMMARY FROM THIS ADMISSION: None indicated, none performed. HOSPITAL COURSE: The patient was admitted to the residential care program on 02/02/2017. He remained in treatment until 02/28/2017. While in treatment, his primary counselor was Yari Zimmer. He participated in individual therapy and group therapy. He was also given the educational series on substance abuse and worked on many of these assignments during his stay at the treatment program. He did attend the family education and family group sessions alone, but none of his family members participated. While in treatment, he was accepting of his substance abuse problem. He worked well with the staff in both individual and group settings. He had no significant medical issues during his stay at the treatment program. He was able to complete step 1 of AA during this level of care. He was able to identify the negative consequences of his addiction. He was able to recognize his powerlessness over drugs and alcohol. He gained insight into the disease concept of addiction. He was able to make changes with regard to his past criminal thinking as well as making other positive changes in his life. He did work on relapse prevention and worked on identifying obstacles to his sobriety. He ultimately completed his residential treatment goals and was felt to be ready for the next level of care. The patient was dismissed to the [facility]. He is to reside at the [facility] for a minimum of ADMIT: 02/02/2017 RM/LOC: Harish [facility] MR#: [id number] [address] [id number] ANAHY PEÑA [address] [place] [address] General Discharge Summary SEX: M AGE: 27 : 1990 6 months and attend aftercare here at the [facility]. He is to do weekly individual and weekly group sessions. He is to attend a minimum of 3 to 5 AA or NA meetings per week and maintain regular contact with a sponsor. He is to seek full-time employment and try to work a strong program of recovery. Unfortunately, upon discharge, he did go to the [facility], but had a court date the day following admission to [facility], and was placed back in halfway. Once he gets out of halfway, he is going to return to the [facility], and then do his outpatient followup here at the [facility]. DISCHARGE MEDICATIONS: Included Seroquel 100 mg two tablets at bedtime. CONDITION AT DISCHARGE: Improved. PROGNOSIS: [place] to be good. Pepito L Husen, MD/ wendy JOB #: [id number] CC: Pepito Márquez MD, Attending Physician FAMILY PHYSICIAN, Family Physician
== END 2017-02-28 07:07 | disposition home or self-care (01) | DRG 895 ==
LOC: ADTC 10:17
PROVIDERS: ADMIT Family Medicine
PROC: HZ43ZZZ Group Counseling for Substance Abuse Treatment, 12-Step (ICD-10-PCS; principal; 2017-02-02)
PROC: HZ34ZZZ Individual Counseling for Substance Abuse Treatment, Interpersonal (ICD-10-PCS; principal; 2017-02-02)
DX: F15.20 Other stimulant dependence, uncomplicated (principal); F33.9 Major depressive disorder, recurrent, unspecified; F12.20 Cannabis dependence, uncomplicated; F10.20 Alcohol dependence, uncomplicated; F17.210 Nicotine dependence, cigarettes, uncomplicated; J45.20 Mild intermittent asthma, uncomplicated; F19.24 Other psychoactive substance dependence with psychoactive substance-induced mood disorder; F41.9 Anxiety disorder, unspecified; G47.00 Insomnia, unspecified; Z65.2 Problems related to release from prison